=== PATIENT | female | born 1955 | race Caucasian/White ===

== ENCOUNTER 2022-07-20 17:58 | Outpatient (CLI) | payer BC, SELFPAY | END 2022-07-20 17:59 | disposition home or self-care (01) | LOC: LKVREF 07-28 09:10 | PROVIDERS: PCP Family Medicine; Visit Provider Student in an Organized Health Care Education/Training Program | DX: R30.0 Dysuria (principal); N39.0 Urinary tract infection, site not specified | CPT/HCPCS: 87086 ==

== ENCOUNTER 2022-07-21 12:46 | Outpatient (CLI) | payer BC, SELFPAY ==
--- NOTE | 2022-07-21 13:00 | CRLHL7_ITS ---
For Patients: As a result of the Century Cures Act, medical imaging exams and procedure reports are released immediately into your electronic medical record. You may view this report before your referring provider. If you have questions, please contact your health care provider. BILATERAL SCREENING MAMMOGRAM WITH COMPUTER-AIDED DETECTION AND TOMOSYNTHESIS TECHNIQUE: CC and MLO views were obtained. These mammographic images have been obtained using full-field digital technique. These mammographic images were interpreted with the benefit of computer-aided detection. Breast Tomosynthesis was used in this interpretation. COMPARISON FILM: 04/21/21, 04/13/20, 02/12/19. FINDINGS: There are scattered areas of fibroglandular density IMPRESSION: There is no radiographic evidence for malignancy. ASSESSMENT: BI-RADS Category 1: Negative RECOMMENDATION: Routine screening mammogram in 1 year. A lay language report of this examination will be provided to the patient. Kelton Issa M.D. Diagnostic Radiologist [email or web address] SALTY/Dictated by: Kelton Issa MD @ 07/24/2022 8:37:00 AM (Electronically Signed)
== END 2022-07-21 12:47 | disposition home or self-care (01) ==
LOC: MAMMO 12:49
PROVIDERS: PCP Family Medicine; Visit Provider Family Medicine
DX: Z12.31 Encounter for screening mammogram for malignant neoplasm of breast (principal)
CPT/HCPCS: 77063; 77067

== ENCOUNTER 2022-12-06 10:40 | Outpatient (CLI) | payer BC, SELFPAY ==
[2022-12-06 14:15] LABS: Albumin* 4.2 g/dL (3.3-5.0)
[2022-12-06 14:16] LABS: Chloride* 107 mmol/L (96-114); Potassium* 4.1 mmol/L (3.6-5.1); Sodium* 141 mmol/L (135-149)
[2022-12-06 14:18] LABS: Bilirubin Total* 0.8 mg/dL (0.1-1.5); Carbon Dioxide* 28 mmol/L (20-32); Cholesterol* 202 mg/dL (90-199); Creatinine* 0.7 mg/dL (0.5-1.5); Estimated Glomerular Filt Rate 95 ml/min; Total Protein* 6.9 g/dL (6.0-8.3)
[2022-12-06 14:19] LABS: Alanine Aminotransferase* 17 U/L (4-35); Alkaline Phosphatase* 100 U/L (40-150); Aspartate Amino Transferase* 24 U/L (12-35); Blood Urea Nitrogen* 12 mg/dL (7-30); Calcium* 9.2 mg/dL (8.4-10.6); Glucose* 86 mg/dL (60-115); HDL Cholesterol* 60 mg/dL (>=50); LDL Cholesterol Calculated 110 mg/dL (<100); Triglycerides* 160 mg/dL (40-149)
[2022-12-06 14:36] LABS: Vitamin D 25 Hydroxy* 39 ng/mL (30-80)
[2022-12-06 14:50] LABS: TSH With Reflex to FT4* 0.723 uIU/mL (0.270-4.200)
[2022-12-06 14:55] LABS: Ferritin* 14.2 ng/mL (11.1-264.0)
== END 2022-12-06 10:41 | disposition home or self-care (01) ==
PROVIDERS: PCP Family Medicine; Visit Provider Family Medicine
DX: Z00.00 Encounter for general adult medical examination without abnormal findings (principal); I10 Essential (primary) hypertension; E55.9 Vitamin D deficiency, unspecified; D50.9 Iron deficiency anemia, unspecified; E03.9 Hypothyroidism, unspecified; R30.0 Dysuria; E78.5 Hyperlipidemia, unspecified
CPT/HCPCS: 80053; 80061; 82306; 82728; 84443; 87086

== ENCOUNTER 2023-03-01 07:19 | Outpatient (CLI) | payer BC, SELFPAY ==
--- NOTE | 2023-03-01 08:45 | W.ANESCHARGE ---
Anesthesia Charges Start Date/Time Anesthesia Start Date: 03/01/23 Anesthesia Start Time: 08:02 Stop Date/Time Anesthesia Stop Date: 03/01/23 Anesthesia Stop Time: 08:37
--- NOTE | 2023-03-01 09:06 | W.ANESCHARGE ---
Anesthesia Charges Start Date/Time Anesthesia Start Date: 03/01/23 Anesthesia Start Time: 08:02 Stop Date/Time Anesthesia Stop Date: 03/01/23 Anesthesia Stop Time: 08:37
== END 2023-03-01 07:20 | disposition home or self-care (01) ==
LOC: OP CLINIC 07:20
PROVIDERS: PCP Family Medicine; Visit Provider Surgery
DX: Z12.11 Encounter for screening for malignant neoplasm of colon (principal); K63.5 Polyp of colon; K55.20 Angiodysplasia of colon without hemorrhage; Z83.71 Family history of colonic polyps
CPT/HCPCS: 00811; 45380; 45385; 88305; J1200; J2405; J2704

== ENCOUNTER 2023-03-14 11:29 | Outpatient (CLI) | payer BC, SELFPAY | END 2023-03-14 11:30 | disposition home or self-care (01) | LOC: NFLDREF 03-15 16:24 | PROVIDERS: PCP Family Medicine; Referring Provider Family Medicine; Visit Provider Family Medicine | DX: R19.7 Diarrhea, unspecified (principal); R10.13 Epigastric pain | CPT/HCPCS: 87045; 87046; 87077; 87177; 87209; 87338; 87427; 87493; 87505 ==

== ENCOUNTER 2023-06-11 14:23 | Outpatient (CLI) | payer BC, MEDICARE, MEDICAID, SELFPAY | END 2023-06-11 14:24 | disposition home or self-care (01) | LOC: LKVREF 14:24 | PROVIDERS: PCP Family Medicine; Visit Provider Physician Assistant | DX: R30.0 Dysuria (principal) | CPT/HCPCS: 87086 ==

== ENCOUNTER 2023-08-06 11:12 | Outpatient (CLI) | payer BC, SELFPAY ==
--- NOTE | 2023-08-06 11:30 | CRLHL7_ITS ---
For Patients: As a result of the Century Cures Act, medical imaging exams and procedure reports are released immediately into your electronic medical record. You may view this report before your referring provider. If you have questions, please contact your health care provider. BILATERAL SCREENING MAMMOGRAM WITH COMPUTER-AIDED DETECTION AND TOMOSYNTHESIS TECHNIQUE: CC and MLO views were obtained. These mammographic images have been obtained using full-field digital technique. These mammographic images were interpreted with the benefit of computer-aided detection. Breast Tomosynthesis was used in this interpretation. COMPARISON FILM: 07/21/22, 04/21/21, 04/13/20. FINDINGS: There are scattered areas of fibroglandular density IMPRESSION: There is no radiographic evidence for malignancy. ASSESSMENT: BI-RADS Category 1: Negative RECOMMENDATION: Routine screening mammogram in 1 year. A lay language report of this examination will be provided to the patient. Kelton Issa M.D. Diagnostic Radiologist [email or web address] Transcribed: 2:54 pm DW/Dictated by: Kelton Issa MD @ 08/07/2023 9:12:00 AM (Electronically Signed)
== END 2023-08-06 11:13 | disposition home or self-care (01) ==
LOC: MAMMO 11:13
PROVIDERS: PCP Family Medicine; Visit Provider Family Medicine
DX: Z12.31 Encounter for screening mammogram for malignant neoplasm of breast (principal)
CPT/HCPCS: 77063; 77067

== ENCOUNTER 2024-02-11 10:03 | Outpatient (CLI) | payer BC, SELFPAY | END 2024-02-11 10:04 | disposition home or self-care (01) | LOC: NFLDREF 02-13 07:48 | PROVIDERS: PCP Family Medicine; Referring Provider Family Medicine; Visit Provider Family Medicine | DX: E03.9 Hypothyroidism, unspecified (principal); E55.9 Vitamin D deficiency, unspecified; E78.5 Hyperlipidemia, unspecified; I10 Essential (primary) hypertension; M81.0 Age-related osteoporosis without current pathological fracture | CPT/HCPCS: 80053; 80061; 82306; 84443 ==

== ENCOUNTER 2024-02-13 10:30 | Outpatient (CLI) | payer BC, SELFPAY | END 2024-02-13 10:31 | disposition home or self-care (01) | PROVIDERS: PCP Family Medicine; Visit Provider Family Medicine | DX: D50.9 Iron deficiency anemia, unspecified (principal) | CPT/HCPCS: 82728; 83540; 83550 ==

== ENCOUNTER 2024-02-25 11:21 | Outpatient (CLI) | payer BC, SELFPAY | END 2024-02-25 11:22 | disposition home or self-care (01) | PROVIDERS: PCP Family Medicine; Visit Provider Family Medicine | DX: R00.2 Palpitations (principal); R00.1 Bradycardia, unspecified | CPT/HCPCS: 93225; 93226 ==

== ENCOUNTER 2025-02-18 09:10 | Outpatient (CLI) | payer MEDICARE, SELFPAY | END 2025-02-18 09:11 | disposition home or self-care (01) | LOC: NFLDREF 02-23 03:53 | PROVIDERS: PCP Family Medicine; Referring Provider Family Medicine; Visit Provider Family Medicine | DX: D50.9 Iron deficiency anemia, unspecified (principal); I10 Essential (primary) hypertension; E03.9 Hypothyroidism, unspecified; E55.9 Vitamin D deficiency, unspecified; E78.5 Hyperlipidemia, unspecified; M81.0 Age-related osteoporosis without current pathological fracture | CPT/HCPCS: 80053; 80061; 82306; 82728; 83540; 83550; 84443 ==

== ENCOUNTER 2025-06-10 13:27 | Outpatient (CLI) | payer MEDICARE, SELFPAY ==
--- NOTE | 2025-06-10 13:40 | CRLHL7_ITS ---
For Patients: As a result of the Century Cures Act, medical imaging exams and procedure reports are released immediately into your electronic medical record. You may view this report before your referring provider. If you have questions, please contact your health care provider. INDICATION: BILATERAL SCREENING MAMMOGRAM, ASYMPOTMATIC 69 Y/O FEMALE COMPARISON: 08/06/2023, 07/21/2022, 04/21/2021 TECHNIQUE: Digital mammogram in CC and MLO projections including computer-aided detection (CAD) and tomosynthesis. BREAST COMPOSITION: There are scattered areas of fibroglandular density. FINDINGS: No suspicious findings. ASSESSMENT: BI-RADS 1 Negative RECOMMENDATION: Annual screening mammogram. A lay language report of this examination will be provided to the patient. Dictated by: Dimple Kumar MD @ 06/11/2025 13:38:05 (Electronically Signed)
== END 2025-06-10 13:28 | disposition home or self-care (01) ==
LOC: MAMMO 13:28
PROVIDERS: PCP Family Medicine; Visit Provider Family Medicine
DX: Z12.31 Encounter for screening mammogram for malignant neoplasm of breast (principal)
CPT/HCPCS: 77063; 77067